=== PATIENT | female | born 1950 | race Caucasian/White ===

== ENCOUNTER 2016-12-13 11:34 | Emergency (ER) | payer MEDICARE ==
[~2016-12-13] VITALS: Ht 172.7 cm; Wt 100.0 kg
[2016-12-13 11:35] VITALS: BP 169/77; PULSE 98; RESP 24; TEMP 99.5; O2SAT 99
--- NOTE | 2016-12-13 11:42 | PD ---
Physical Exam Date Seen by Provider: Dec 13, 2016 Time Seen by Provider: 11:40 Narrative 66 yo female here with N/V/D since last night. Pain to the epigastric abdomen as well. Pain is 10/10. Nothing OTC makes it better. No recent travel. No blood. No other complaints. Vitals sign stable. Patient awaiting bed placement Data Data Last Documented VS Vital Signs Date Time Temp Pulse Resp B/P Pulse Ox O2 Delivery O2 Flow Rate FiO2 12/13/16 11:35 99.5 98 24 169/77 99 Room Air [facility] Medical Record Reviewed: Yes Supervised Visit with ARLETH: Tigre Guzman Dec 13, 2016 11:41
[2016-12-13] MEDS ORDERED: HYDR50TA94 PO (12:19)
[2016-12-13] MEDS ORDERED: PROBCAP11 (12:19)
[2016-12-13] MEDS ORDERED: LISI40TA PO (12:19)
[2016-12-13] MEDS ORDERED: TRAZ150T75 PO (12:19)
[2016-12-13] MEDS ORDERED: DICL75TA PO (12:19)
[2016-12-13] MEDS ORDERED: AMIT25TA9 PO (12:19)
[2016-12-13] MEDS ORDERED: BUPR150CR PO (12:19)
[2016-12-13] MEDS ORDERED: DULO1CAP3 PO (12:19)
[2016-12-13] MEDS ORDERED: OMEP20CA2 (12:19)
[2016-12-13] MEDS ORDERED: LIPI40TA PO (12:19)
[2016-12-13] MEDS ORDERED: AMBI10TA PO (12:19)
[2016-12-13] MEDS ORDERED: TIZA4CAP3 PO (12:19)
[2016-12-13] MEDS ORDERED: SODIUM CHLOR 0.9% 1000 ML INJ 1,000 ML IV SCH (12:28)
[2016-12-13] MEDS ORDERED: MORPHINE SULFATE 8 MG/ML INJ IV PUSH ONE (12:30)
[2016-12-13] MEDS ORDERED: SODIUM CHLORIDE 0.9% FLUSH 10 ML FLUSH IV FLUSH PRN (12:30)
[2016-12-13] MEDS ORDERED: ONDANSETRON HCL 4 MG/2 ML VIAL IVP ONE (12:30)
[2016-12-13 12:41] LABS: AUTOMATED NEUTROPHIL # 9.7 TH/MM3 (1.8-7.7); BASOPHIL % 0.1 % (0.0-2.0); EOSINOPHIL % 0.4 % (0.0-4.0); HEMATOCRIT 39.1 % (35.0-46.0); HEMO FLAGS DIFF FINAL; LYMPH % 3.7 % (9.0-44.0); LYMPHOCYTE # 0.4 TH/MM3 (1.0-4.8); MEAN CELL VOLUME 89.3 FL (80.0-100.0); MEAN CORPUSCULAR HEMOGLOBIN 30.1 PG (27.0-34.0); MEAN CORPUSCULAR HGB CONC 33.8 % (32.0-36.0); MONO % 7.4 % (0.0-8.0); NEUT % 88.4 % (16.0-70.0); PLATELET COUNT 240 TH/MM3 (150-450); RED BLOOD COUNT 4.38 MIL/MM3 (4.00-5.30); RED CELL DISTRIBUTION WIDTH 14.4 % (11.6-17.2)
--- NOTE | 2016-12-13 12:51 | PD ---
HPI Chief Complaint: GI Complaint Time Seen by Provider: 12:03 Travel History International Travel<30 days: No Contact w/Intl Traveler<30days: No Traveled to known affect area: No History of Present Illness HPI Patient 66-year-old female presents emergency department for evaluation of epigastric pain. Patient states she has a history of cholecystitis status post cholecystectomy as well as pancreatitis. Patient states she was throwing up severely last night and also been having some diarrhea which is nonbloody and nonbilious in nature. She was supposed to go on a cruise today but went to an urgent care center and they were told her she looked dehydrated and recommended she come to the emergency department for IV fluids and further workup. She is not tried anything prior to arrival. She states the pain also radiates to her back. PFSH Past Medical History GERD: Yes Hypertension: Yes Past Surgical History Cholecystectomy: Yes Hysterectomy: Yes Thoracic Surgery: Yes (breast reduction) Other Surgery: Yes (sinus ) Social History Alcohol Use: Yes (wine rarely) Tobacco Use: No Substance Use: No Allergies-Medications (Allergen,Severity, Reaction): Coded Allergies: No Known Allergies (Unverified , 12/13/16) Reported Meds & Prescriptions Reported Meds & Active Scripts Active Bentyl (Dicyclomine HCl) 20 Mg Tab 20 Mg PO TID Zofran Odt (Ondansetron Odt) 4 Mg Tab 4 Mg SL Q6HR PRN Reported Probiotic (Probiotic Product) 1 Cap Cap Amitriptyline (Amitriptyline HCl) 25 Mg Tab 25 Mg PO HS Diclofenac Sodium DR (Diclofenac Sodium) 75 Mg Tabdr 75 Mg PO BID Duloxetine DR (Duloxetine HCl) 60 Mg Capdr 60 Mg PO DAILY Wellbutrin SR 12 HR (Bupropion HCl) 150 Mg Tab 150 Mg PO Q12HR Omeprazole 20 Mg Cap Tizanidine (Tizanidine HCl) 4 Mg Cap 4 Mg PO TID Ambien (Zolpidem Tartrate) 10 Mg Tab 10 Mg PO HS PRN Lipitor (Atorvastatin Calcium) 40 Mg Tab 40 Mg PO HS Hydroxyzine HCl 50 Mg Tab 50 Mg PO BID Trazodone (Trazodone HCl) 150 Mg Tab 150 Mg PO HS Lisinopril 40 Mg Tab 40 Mg PO DAILY Review of Systems Except as stated in HPI: all other systems reviewed are Neg Physical Exam Narrative GENERAL: Well-developed well-nourished, appears uncomfortable. SKIN: Focused skin assessment warm/dry. HEAD: Atraumatic. Normocephalic. EYES: Pupils equal and round. No scleral icterus. No injection or drainage. ENT: No nasal bleeding or discharge. Mucous membranes pink and moist. NECK: Trachea midline. No JVD. CARDIOVASCULAR: Regular rate and rhythm. No murmur appreciated. RESPIRATORY: No accessory muscle use. Clear to auscultation. Breath sounds equal bilaterally. GASTROINTESTINAL: Abdomen soft, minimally tender in the epigastric area, nondistended. Hepatic and splenic margins not palpable. Mcguire sign negative, no rebound no percussive tenderness. MUSCULOSKELETAL: No obvious deformities. No clubbing. No cyanosis. No edema. NEUROLOGICAL: Awake and alert. No obvious cranial nerve deficits. Motor grossly within normal limits. Normal speech. PSYCHIATRIC: Appropriate mood and affect; insight and judgment normal. Data Data Last Documented VS Vital Signs Date Time Temp Pulse Resp B/P Pulse Ox O2 Delivery O2 Flow Rate FiO2 12/13/16 13:30 70 15 140/75 98 Room Air 12/13/16 11:35 99.5 Orders Complete Blood Count With Diff (12/13/16 11:41) Comprehensive Metabolic Panel (12/13/16 11:41) Urinalysis - C+S If Indicated (12/13/16 11:41) Lipase (12/13/16 11:41) Ct Abd/Pel W Iv Contrast(Rout) (12/13/16 12:28) Iv Access Insert/Monitor (12/13/16 12:28) Ecg Monitoring (12/13/16 12:28) Oximetry (12/13/16 12:28) Ondansetron Inj (Zofran Inj) (12/13/16 12:30) Sodium Chlor 0.9% 1000 Ml Inj (Ns 1000 M (12/13/16 12:28) Sodium Chloride 0.9% Flush (Ns Flush) (12/13/16 12:30) Electrocardiogram (12/13/16 12:28) Chest, Single Ap (12/13/16 12:28) Morphine Inj (Morphine Inj) (12/13/16 12:30) Iohexol 350 Inj (Omnipaque 350 Inj) (12/13/16 14:08) Dicyclomine (Bentyl) (12/13/16 15:30) Labs Laboratory Tests Test 12/13/16 12/13/16 12:15 13:55 White Blood Count 11.0 TH/MM3 Red Blood Count 4.38 MIL/MM3 Hemoglobin 13.2 GM/DL Hematocrit 39.1 % Mean Corpuscular Volume 89.3 FL Mean Corpuscular Hemoglobin 30.1 PG Mean Corpuscular Hemoglobin 33.8 % Concent Red Cell Distribution Width 14.4 % Platelet Count 240 TH/MM3 Mean Platelet Volume 8.1 FL Neutrophils (%) (Auto) 88.4 % Lymphocytes (%) (Auto) 3.7 % Monocytes (%) (Auto) 7.4 % Eosinophils (%) (Auto) 0.4 % Basophils (%) (Auto) 0.1 % Neutrophils # (Auto) 9.7 TH/MM3 Lymphocytes # (Auto) 0.4 TH/MM3 Monocytes # (Auto) 0.8 TH/MM3 Eosinophils # (Auto) 0.0 TH/MM3 Basophils # (Auto) 0.0 TH/MM3 CBC Comment DIFF FINAL Differential Comment Sodium Level 140 MEQ/L Potassium Level 3.0 MEQ/L Chloride Level 104 MEQ/L Carbon Dioxide Level 25.1 MEQ/L Anion Gap 11 MEQ/L Blood Urea Nitrogen 26 MG/DL Creatinine 0.97 MG/DL Estimat Glomerular Filtration 58 ML/MIN Rate Random Glucose 121 MG/DL Calcium Level 9.0 MG/DL Total Bilirubin 0.3 MG/DL Aspartate Amino Transf 10 U/L (AST/SGOT) Alanine Aminotransferase 20 U/L (ALT/SGPT) Alkaline Phosphatase 83 U/L Total Protein 6.9 GM/DL Albumin 3.6 GM/DL Lipase 108 U/L Urine Color YELLOW Urine Turbidity CLEAR Urine pH 6.5 Urine Specific Nada 1.011 Urine Protein NEG mg/dL Urine Glucose (UA) NEG mg/dL Urine Ketones NEG mg/dL Urine Occult Blood NEG Urine Nitrite NEG Urine Bilirubin NEG Urine Urobilinogen LESS THAN 2.0 MG/DL Urine Leukocyte Esterase NEG Urine RBC LESS THAN 1 /hpf Urine Squamous Epithelial <1 /hpf Cells Microscopic Urinalysis Comment CULT NOT INDICATED MDM Medical Decision Making Medical Screen Exam Complete: Yes Emergency Medical Condition: Yes Interpretation(s) EKG shows normal sinus rhythm with a left axis deviation, normal R-wave progression. No concerning ST-T changes. Intervals within normal limits. This is an abnormal EKG. No previous for comparison. Differential Diagnosis Pancreatitis, gastritis, gastroenteritis, abdominal pain, acute abdomen unlikely. Narrative Course Patient roomed in ED, pain medication and antiemetics given. Patient feeling better. Labs reassuring. CT scan negative. Patient re-visited and is feeling better but "not perfect". DIscussed results and recommended symptomatic treatment and reassurance. She and grateful. Stable for discharge. Diagnosis Primary Impression: Epigastric pain Additional Impression: Gastroenteritis Med/Other Pt SpecificInfo: Prescription(s) given Scripts Dicyclomine (Bentyl)20 Mg Tab20 Mg PO TID #30 TAB Ref 0 Prov:Ryan Pryor MD 12/13/16 Ondansetron Odt (Zofran Odt)4 Mg Tab4 Mg SL Q6HR PRN (Nausea/Vomiting) #30 TAB Ref 0 Prov:Ryan Pryor MD 12/13/16 Disposition: 01 DISCHARGE HOME Condition: Stable Ryan Pryor MD Dec 13, 2016 12:50
[2016-12-13 13:08] LABS: ANION GAP 11 MEQ/L (5-15); AST (GOT) 10 U/L (15-37); BICARBONATE 25.1 MEQ/L (21.0-32.0); BLOOD UREA NITROGEN 26 MG/DL (7-18); CHLORIDE 104 MEQ/L (98-107); GLOMERULAR FILTRATION RATE 58 ML/MIN (>89); SODIUM (NA) 140 MEQ/L (136-145)
[2016-12-13 13:12] LABS: ALKALINE PHOSPHATASE 83 U/L (45-117); ALT (GPT) 20 U/L (10-53); TOTAL BILIRUBIN ADULT 0.3 MG/DL (0.2-1.0)
[2016-12-13 13:30] VITALS: BP 140/75; PULSE 70; RESP 15; O2SAT 98
--- NOTE | 2016-12-13 13:30 | RADRPT ---
EXAM DATE/TIME: 12/13/2016 12:28 [facility] COMPARISON: No previous studies available for comparison. INDICATIONS : Patient states chest pains. MEDICAL HISTORY : Hypertension. SURGICAL HISTORY : None. ENCOUNTER: Initial ACUITY: 1 day PAIN SCORE: 4/10 LOCATION: Bilateral chest FINDINGS: A single view of the chest demonstrates the lungs to be symmetrically aerated without evidence of mas s, infiltrate or effusion. The cardiomediastinal contours are unremarkable. Osseous structures are intact. CONCLUSION: No acute disease. Hari Parikh MD FACR on December 13, 2016 at 13:28 Board Certified Radiologist. This report was verified electronically.
[2016-12-13] MEDS ORDERED: IOHEXOL 350 MG/ML 10 ML VIAL (for RAD DIAG) IV ONE (14:08)
[2016-12-13 14:24] LABS: BLOOD, URINE NEG (NEG); COMMENT (UR) CULT NOT INDICATED; CULTURE IF INDICATED CULT NOT INDICATED; GLUCOSE,URINE NEG (NEG); KETONE, URINE NEG (NEG); NITRITE,URINE NEG (NEG); PH, URINE 6.5 (5.0-8.5); SQUAMOUS EPITHELIAL CELL URINE <1 /hpf (0-5); URINE COLOR YELLOW (YELLW/STRAW)
--- NOTE | 2016-12-13 14:51 | RADRPT ---
EXAM DATE/TIME: 12/13/2016 14:05 [facility] COMPARISON: No previous studies available for comparison. INDICATIONS : Epigastric pain with nausea and vomiting. IV CONTRAST: 80 cc Omnipaque 350 (iohexol) IV ORAL CONTRAST: No oral contrast ingested. RADIATION DOSE: 9.96 CTDIvol (mGy) MEDICAL HISTORY : Hypertension. SURGICAL HISTORY : Cholecystectomy. Hysterectomy. ENCOUNTER: Initial ACUITY: 2 days PAIN SCALE: 5/10 LOCATION: upper quadrant TECHNIQUE: Volumetric scanning of the abdomen and pelvis was performed. Using automated exposure control and ad justment of the mA and/or kV according to patient size, radiation dose was kept as low as reasonably achievable to obtain optimal diagnostic quality images. FINDINGS: LOWER LUNGS: The visualized lower lungs are clear. LIVER: Homogeneous density without lesion. There is no dilation of the biliary tree. Status post cholecyste ctomy. SPLEEN: Normal size without lesion. PANCREAS: Within normal limits. KIDNEYS: Normal in size and shape. There is no mass, stone or hydronephrosis. ADRENAL GLANDS: Within normal limits. VASCULAR: There is no aortic aneurysm. BOWEL/MESENTERY: The stomach, small bowel, and colon demonstrate no acute abnormality. There is no free intraperitone al air or fluid. There is a normal appendix. ABDOMINAL WALL: Within normal limits. RETROPERITONEUM: There is no lymphadenopathy. BLADDER: No wall thickening or mass. REPRODUCTIVE: Within normal limits. INGUINAL: There is no lymphadenopathy or hernia. MUSCULOSKELETAL: Within normal limits for patient age. CONCLUSION: 1. Unremarkable bowel gas pattern with no inflammatory change or obstruction. There is a normal appen mustapha. 2. Status post cholecystectomy. 3. The stomach is unremarkable in appearance. Andres Miguel MD on December 13, 2016 at 14:47 Board Certified Radiologist. This report was verified electronically.
[2016-12-13] MEDS ORDERED: DICYCLOMINE HCL 10 MG CAP PO ONE (15:30)
[2016-12-13] MEDS ORDERED: ZOFR4TAB3 SL (15:37)
[2016-12-13] MEDS ORDERED: BENT20TA PO (15:37)
--- NOTE | 2016-12-14 19:28 | EKG ---
Date Performed: 12/13/2016 Time Performed: 13:42:37 PTAGE: 66 years EKG: Sinus rhythm MARKED LEFT AXIS DEVIATION NONSPECIFIC ST & T-WAVE ABNORMALITY ABNORMAL ECG NO PREVIOUS TRACING DOCTOR: Frankie Perez Interpretating Date/Time 12/14/2016 19:27:27
== END 2016-12-13 16:36 | disposition home or self-care (01) ==
LOC: NEPD 11:34
DX: K52.9 Noninfective gastroenteritis and colitis, unspecified (principal)
CPT/HCPCS: 71010; 74177; 80053; 81001; 83690; 85025; 93005; 96361; 96374; 96375; 99284; J2270; J2405; J7030; Q9967